=== PATIENT | male | born 1980 | race African-American/Black ===

== ENCOUNTER → 2017-08-07 | Outpatient (CLI) | payer SELFPAY ==
[~2017-08-07] MED LIST: NS 100 ML IV 100 ML IV ONE
--- NOTE | 2017-08-07 15:14 | CT ---
Examination: CT of the abdomen and pelvis without contrast. Clinical History: Right flank pain, rule out renal mass. Technique: Multiple axial images were obtained from the lung bases down to the pubic symphysis. No or al or intravenous contrast was administered. Dose reduction techniques including automated exposure c ontrol (AEC) and adjustment of mA and kV were utilized. Comparison: None available. Findings: The visualized portion of the lung bases is unremarkable. A lack of intravenous contrast limits evaluation of the solid intra-abdominal organs. No definite tereza al mass is evident. A tiny 2 mm calcific density is seen posterior to the bladder on the right side, just proximal to the ureterovesical junction, possibly representing a distal right ureteral calculus. The right ureter is obscured and no right-sided hydronephrosis or hydroureter is noted. Clinical correlation with the pa tient's symptoms is therefore recommended. The gallbladder is contracted and cannot be adequately evaluated. The liver, spleen, pancreas and adrenal glands are normal in appearance. The abdominal aorta is normal in caliber. There is a lack of intra-abdominal fat, which limits evaluation for an acute inflammatory or infectiv e intra-abdominal process. The bowel gas pattern is non-obstructive. There is no free air. A large amount of stool is noted in the colon. The colon is otherwise within normal limits. The small bowel is grossly unremarkable. The appendix is not visualized. The bladder, prostate and seminal vesicles are within normal limits. No pelvic mass or fluid collection is noted. Mild degenerative changes are noted in the spine. No acute osseous abnormality is noted. Impression: 1. A lack of intravenous contrast limits evaluation of the solid intra-abdominal organs. No definite renal mass is evident. 2. A tiny 2 mm calcific density is seen posterior to the bladder on the right side, just proximal to the ureterovesical junction, possibly representing a distal right ureteral calculus. The right ureter is obscured and no right-sided hydronephrosis or hydroureter is noted. Clinical correlation with the patient's symptoms is therefore recommended. 3. The gallbladder is contracted and cannot be adequately evaluated. 4. A large amount of stool is noted in the colon. The colon is otherwise unremarkable. Reported By:
== END ==
LOC: RAD 13:39
DX: R19.09 Other intra-abdominal and pelvic swelling, mass and lump (principal)
CPT/HCPCS: 74176; A4222